=== PATIENT | female | born 2000 | race Hispanic/Latino ===

== ENCOUNTER 2020-10-30 07:39 | Emergency (ER) | payer BC ==
[~2020-10-30] VITALS: Ht 172.7 cm; Wt 63.5 kg
[2020-10-30] MEDS ORDERED: KETOROLAC TROMETHAMINE 60 MG/2 ML VIAL IM ONE (08:00)
[2020-10-30] MEDS ORDERED: KETOROLAC TROMETHAMINE 30 MG/ML VIAL ONE (08:03)
[2020-10-30] MEDS ORDERED: LIDOCAINE 4% PATCH TP ONE (08:25)
== END 2020-10-30 08:18 | disposition home or self-care (01) ==
LOC: ER 08:08
DX: R07.89 Other chest pain (principal); R94.31 Abnormal electrocardiogram [ECG] [EKG]
CPT/HCPCS: 93005; 99282; J1885